=== PATIENT | male | born 2000 | race Caucasian/White ===

== ENCOUNTER → 2023-08-02 | Outpatient (CLI) | payer BC ==
[~2023-08-02] VITALS: Ht 182.9 cm; Wt 65.1 kg
[2023-08-02] VITALS (9 sets, daily range): BP systolic 108–120; BP diastolic 61–78; PULSE 64–76; TEMP 97.9
[~2023-08-02] MED LIST: PREDNISONE20 MG PO
[2023-08-02 12:43] LABS: HEMATOCRIT 40.4 % (42.0-52.0); HEMOGLOBIN 14.7 g/dl (13.5-18.0); MEAN CELL VOLUME 87 fl (80.0-100.0); MEAN CORPUSCULAR HEMOGLOBIN 32 pg (27-31); MEAN CORPUSCULAR HGB CONC 36 g/dl (33.0-37.0); MEAN PLATELET VOLUME 9.7 fl (7.4-10.4); PLATELET COUNT 117 K/mm3 (130-400); RED BLOOD COUNT 4.67 M/mm3 (4.20-5.60); REDCELL DISTRIBUTION WIDTH-CV 12.5 % (11.5-14.5)
--- NOTE | 2023-08-02 13:55 | NUR ---
DR MOORE IN ROOM, VERSED 1MG AND FENTANYL 50MCG IV GIVEN OVER 2 MIN ORDERED BEFORE PROCEDURE
--- NOTE | 2023-08-02 14:06 | NUR ---
LAB IN ROOM FOR SPECIMAN COLLECTION.
--- NOTE | 2023-08-02 14:10 | NUR ---
PROCEDURE COMPLETED, BANDAID OVER, IN SACRAL AREA. PT UP IN W/C, NO C/O
== END ==
LOC: COL.RAD 11:56
PROVIDERS: Internal Medicine
DX: D69.3 Immune thrombocytopenic purpura (principal)
CPT/HCPCS: C1830; J2250; J3010